=== PATIENT | female | born 1995 | race Asian ===

== ENCOUNTER 2020-03-20 22:51 | Emergency (ER) | payer OTHER ==
[~2020-03-20] VITALS: Ht 160 cm; Wt 65.3 kg
[2020-03-21 00:16] VITALS: BP 138/69; TEMP 98.1
== END 2020-03-21 00:17 | disposition home or self-care (01) ==
LOC: ED 22:51
DX: F41.8 Other specified anxiety disorders (principal)
CPT/HCPCS: 93005; 96372; 99282; J2060

== ENCOUNTER 2020-06-14 12:35 | Emergency (ER) | payer OTHER ==
[~2020-06-14] VITALS: Ht 160 cm; Wt 72.6 kg
[2020-06-14 12:45] VITALS: TEMP 98.4
[2020-06-14 13:37] VITALS: BP 126/71
== END 2020-06-14 13:37 | disposition home or self-care (01) ==
LOC: ED 12:35
DX: F41.8 Other specified anxiety disorders (principal); R06.4 Hyperventilation
CPT/HCPCS: 99282